=== PATIENT | male | born 1945 | race American Indian/Alaskan Native ===

== ENCOUNTER 2018-01-28 11:15 | Emergency (ER) | payer MEDICARE, OTHER ==
[2018-01-28] MEDS ORDERED: HYDROmorphone 1 MG/ML Syringe IM ONE (11:36)
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
[2018-01-28 14:46] VITALS: BP 125/87
--- NOTE | 2018-01-28 15:34 | CT ---
CT cervical spine Technique: Multiple axial sections were obtained from above the C2 level inferiorly to the top of T2. Reconstructed sagittal and coronal images were reviewed. Comparison: No prior cervical spine imaging. Findings: Mild mucosal thickening seen within the sphenoid and ethmoid sinuses. Degenerative change is noted between the dens and anterior arch of C1. Mild disc space narrowing noted at C4-C5. Severe disc space narrowing is noted at C5-C6. Anterior and posterior osteophytes are seen at C5-C6. Mild disc space narrowing is noted at C6-C7. Ligamentum nuchal calcification is seen. Degenerative apophyseal change is noted which is most prominent at C5-C6. Degenerative change also noted within the uncovertebral joints which is most prominent at C5-C6. Moderate neural foraminal stenosis is seen bilaterally at C5-C6. Other neural foramina are patent. No fracture is seen. No abnormal subluxation is identified. Impression: 1. Degenerative change as noted above. 2. Nothing acute is appreciated on CT study of the cervical spine. 3. Minimal sinus findings which are felt to be incidental. Diagnostic code #2 I agree with preliminary report from [facility], finalized at 01/28/18, 1:55 PM Central Time
== END 2018-01-28 14:13 | disposition home or self-care (01) ==
LOC: JD.ED 11:15
DX: S32.019A Unspecified fracture of first lumbar vertebra, initial encounter for closed fracture (principal); E11.9 Type 2 diabetes mellitus without complications; I10 Essential (primary) hypertension; Z87.891 Personal history of nicotine dependence; Z88.6 Allergy status to analgesic agent; Z91.013 Allergy to seafood; Z88.8 Allergy status to other drugs, medicaments and biological substances; Z91.011 Allergy to milk products; Z79.82 Long term (current) use of aspirin; Z79.899 Other long term (current) drug therapy; Z79.84 Long term (current) use of oral hypoglycemic drugs; V89.2XXA Person injured in unspecified motor-vehicle accident, traffic, initial encounter
CPT/HCPCS: 72125; 72131; 96372; 99284; J1170

== ENCOUNTER 2018-12-03 20:12 | Emergency (ER) | payer MEDICARE, OTHER ==
[2018-12-03 20:24] VITALS: BP 165/82
--- NOTE | 2018-12-03 20:28 | EDM.PDOC ---
ED HPI GENERAL MEDICAL PROBLEM - General Chief Complaint: Lower Extremity Injury/Pain Stated Complaint: FOOT BLEEDING Time Seen by Provider: 12/03/18 20:15 Source of Information: Reports: Patient, Family History Limitations: Reports: No Limitations - History of Present Illness INITIAL COMMENTS - FREE TEXT/NARRATIVE: The patient is a 73-year-old male. He was seen here earlier due to a laceration to his left great toe where he tore the nail from the nail matrix. It was sutured back into place but the patient takes Plavix and aspirin and the toe began to bleed again and saturated his dressing so he comes back to the ER for evaluation. He denies any further trauma to the left great toe. The sutures are intact and he just bleeding where the laceration was in the sutures were placed. He denies any other acute symptoms. - Related Data Allergies Allergy/AdvReac Type Severity Reaction Status Date / Time aspirin Allergy Rash Verified 12/03/18 20:21 shellfish derived Allergy Bronchospas Verified 12/03/18 20:21 ms atorvastatin calcium AdvReac dizzy Verified 12/03/18 20:21 [From Lipitor] lactulose AdvReac Abdominal Verified 12/03/18 20:21 Cramps Home Meds: Home Meds Aspirin [Halfprin] 81 mg PO DAILY 12/03/18 [History] Beet Root. 1,000 mg PO DAILY 12/03/18 [History] Cephalexin [Keflex] 500 mg PO TID #21 capsule 12/03/18 [Rx] Clopidogrel [Plavix] 75 mg PO DAILY 12/03/18 [History] DULoxetine [Cymbalta] 30 mg PO DAILY 12/03/18 [History] Finasteride 5 mg PO DAILY 12/03/18 [History] Ibuprofen 400 mg PO Q6HR PRN 12/03/18 [History] Isosorbide Mononitrate [Isosorbide Mononitrate ER] 30 mg PO DAILY 12/03/18 [ History] Melatonin 10 mg PO BEDTIME 12/03/18 [History] Metoprolol Succinate [Toprol Xl] 50 mg PO DAILY 12/03/18 [History] Multivitamin [One-A-Day Essential] 1 tab PO DAILY 12/03/18 [History] Prevagen. 12/03/18 [History] Tamsulosin [Flomax] 0.4 mg PO BEDTIME 12/03/18 [History] metFORMIN HCl [Metformin HCl] 1,000 mg PO BIDMEALS 12/03/18 [History] Past Medical History HEENT History: Reports: Cataract Cardiovascular History: Reports: Hypertension, Stents Respiratory History: Reports: Pneumonia, Recurrent Other Respiratory History: Pt does have some noted sleep apnea on the monitor during hospitalization Gastrointestinal History: Reports: Diverticulosis, GI Bleed Genitourinary History: Reports: BPH, Prostate Disorder Neurological History: Reports: Concussion, Head Trauma, Neuropathy, Diabetic Other Neuro History: diabetic neuropathy Psychiatric History: Reports: Addiction Endocrine/Metabolic History: Reports: Diabetes, Type II - Infectious Disease History Infectious Disease History: Reports: Chicken Pox, Measles, Mumps - Past Surgical History HEENT Surgical History: Reports: Cataract Surgery, Tonsillectomy Cardiovascular Surgical History: Reports: Coronary Artery Stent Social & Family History - Family History Family Medical History: Noncontributory Cardiac: Reports: [place] Neurological: Reports: CVA, Dementia Endocrine/Metabolic: Reports: Diabetes, type II - Caffeine Use Caffeine Use: Reports: Soda, Tea Review of Systems - Review of Systems Review Of Systems: See Below Constitutional: Denies: Chills, Fever Eyes: Reports: No Symptoms Ears: Reports: No Symptoms Nose: Reports: No Symptoms Mouth/Throat: Reports: No Symptoms Respiratory: Denies: Shortness of Breath, Cough Cardiovascular: Denies: Chest Pain GI/Abdominal: Reports: No Symptoms Genitourinary: Reports: No Symptoms Musculoskeletal: Reports: Other (As per history of present illness) Skin: Reports: Other (as per history of present illness) Neurological: Reports: Other (Peripheral neuropathy) Psychiatric: Reports: No Symptoms ED EXAM, GENERAL - Physical Exam Exam: See Below Exam Limited By: No Limitations General Appearance: Alert, WD/WN, No Apparent Distress Eye Exam: Bilateral Eye: Normal Inspection Ears: Normal External Exam Nose: Normal Inspection Throat/Mouth: Normal Lips, Normal Voice, No Airway Compromise Head: Normocephalic Neck: Supple Respiratory/Chest: No Respiratory Distress Back Exam: Decreased Range of Motion Extremities: Other (Left great toe has 4 sutures at the base of the nail, it is oozing blood at this time, there is no other acute findings) Neurological: Alert, Oriented Psychiatric: Normal Affect, Normal Mood Skin Exam: Warm, Dry Course - Vital Signs Last Recorded V/S: Last Vital Signs Temp 97.5 F 12/03/18 20:21 Pulse 71 12/03/18 20:21 Resp 17 12/03/18 20:21 BP 165/82 H 12/03/18 20:21 Pulse Ox 99 12/03/18 20:21 - Re-Assessments/Exams Free Text/Narrative Re-Assessment/Exam: 12/03/18 20:38 Appears to be bleeding from a single suture on the dorsal toe. It appears to be a constant ooze. I placed surgery over the site completely wrapped it with some Vaseline gauze and then some Coban and we will watch him here for little while to make sure the bleeding stops. 12/03/18 23:18 We have waited several hours and losing is finally stopped and there is no more blood draining from the dressing. I counseled him to walk on his heel and not on his toe and to keep the dressing on 48 hours. After that they need to soak the toe before they take the dressing off so they don't tear any of the skin and they can reapply some of the surjigel if they need to walk and return to the ER if it starts to bleed again. Departure - Departure Time of Disposition: 23:19 Disposition: Home, Self-Care 01 Condition: Fair Clinical Impression: Hemorrhage of skin lesion - Discharge Information *PRESCRIPTION DRUG MONITORING PROGRAM REVIEWED*: Not Applicable *COPY OF PRESCRIPTION DRUG MONITORING REPORT IN PATIENT ANGELIKA: Not Applicable Referrals: PCP,None [Primary Care Provider] - Forms: ED Department Discharge Additional Instructions: Walk on your heel and not your toes on right foot for the next 4 days, leave the dressing on for 2 days, when you decide to change the dressing soaked adversely do not tear of the skin when you take the dressing off, the surjigel will normally not come off when you soak it so just leave it on there and it'll come off as part of the scab, have the sutures removed in 7 days by your family doctor or you may return to the ER, if there is further problems or bleeding that you cannot stop return to the ER
== END 2018-12-03 23:30 | disposition home or self-care (01) ==
LOC: JD.ED 20:12
DX: S91.112A Laceration without foreign body of left great toe without damage to nail, initial encounter (principal); R58 Hemorrhage, not elsewhere classified; I10 Essential (primary) hypertension; E11.40 Type 2 diabetes mellitus with diabetic neuropathy, unspecified; Z88.6 Allergy status to analgesic agent; Z91.013 Allergy to seafood; Z88.8 Allergy status to other drugs, medicaments and biological substances; Z79.82 Long term (current) use of aspirin; Z79.84 Long term (current) use of oral hypoglycemic drugs; Z95.5 Presence of coronary angioplasty implant and graft; Z98.49 Cataract extraction status, unspecified eye; Z98.890 Other specified postprocedural states
CPT/HCPCS: 99281; 99282

== ENCOUNTER 2020-07-07 15:55 | Emergency (ER) | payer MEDICARE | END 2020-07-07 16:59 | LOC: JD.ED 15:55 | DX: Z53.21 Procedure and treatment not carried out due to patient leaving prior to being seen by health care provider (principal) ==